=== PATIENT | male | born 1945 | race Caucasian/White ===

== ENCOUNTER 2022-11-25 17:45 | Emergency (ER) | payer MEDICARE ==
[2022-11-25] MEDS ORDERED: Diphtheria,Pertussis(Acell),Tetanus Vaccine 0.5 ML Syringe IM ONE (18:48)
[2022-11-25] MEDS ORDERED: Lidocaine 1% 10 ML MDV INJECT ONE (18:48)
== END 2022-11-25 20:00 | disposition home or self-care (01) ==
LOC: MERGE 17:45 → JD.ED 17:45 → EDBD 17:45 → JD.ED 20:00
DX: S61.411A Laceration without foreign body of right hand, initial encounter (principal); I10 Essential (primary) hypertension; E11.9 Type 2 diabetes mellitus without complications; Z23 Encounter for immunization; Z88.2 Allergy status to sulfonamides; Z88.1 Allergy status to other antibiotic agents; W26.8XXA Contact with other sharp object(s), not elsewhere classified, initial encounter; Y92.511 Restaurant or cafe as the place of occurrence of the external cause
CPT/HCPCS: 12001; 90471; 90715; 99282; 99282-25